=== PATIENT | female | born 1975 | race Caucasian/White ===

== ENCOUNTER 2020-10-16 21:45 | Emergency (ER) | payer OTHER ==
[~2020-10-16] VITALS: Ht 157.5 cm; Wt 124.3 kg
[~2020-10-16 21:45] MED LIST: BENADRYL25 MG PO; HYDROCHLOROTHIA25 M2 PO; IBUPROFEN 800800 M1 PO; LEXAPRO20 MG PO; NAPROSYN500 MG PO; NORVASC5 MG PO; PRILOSEC40 MG PO; PRINIVIL40 MG PO; PROAIR HFA8.5 GM INH; SYMBICORT160 MCG/4. INH; VITAMIN D5000 UNIT PO
[2020-10-16] MEDS ORDERED: NEURONTIN 300M300 M2 PO (21:53)
[2020-10-16] MEDS ORDERED: BUSPIRONE HCL10 MG PO (21:53)
[2020-10-16] MEDS ORDERED: CYMBALTA60 MG PO (21:53)
[2020-10-16] MEDS ORDERED: VISTARIL 25 MG25 M1 PO (21:53)
[2020-10-16] MEDS ORDERED: CYMBALTA30 MG PO (21:54)
[2020-10-16 22:43] LABS: URINE BILIRUBIN NEGATIVE (Negative); URINE BLOOD NEGATIVE (Negative); URINE CLARITY CLEAR; URINE COLOR YELLOW; URINE GLUCOSE-RANDOM* NEGATIVE (Negative); URINE KETONES NEGATIVE (Negative); URINE NITRITE-REFLEX NEGATIVE (Negative); URINE PROTEIN (DIPSTICK) NEGATIVE (Negative); URINE SPECIFIC GRAVITY >= 1.030 (1.005-1.035); URINE UROBILINOGEN 0.2 E.U./dl (0.2-1.0)
[2020-10-16 22:44] LABS: URINE LEUKOCYTES-REFLEX 1+ (Negative)
[2020-10-16 22:51] LABS: BACTERIA-REFLEX 1-9 Few /HPF (None Seen); CASTS None Seen /LPF (None Seen); CRYSTALS None Seen /LPF (None Seen); MUCUS 0-3 Light strn/LPF (None Seen); SQUAMOUS >10 Many /LPF (0-3); URINE RBC 0-2 Rare /HPF (0-2); URINE WBC-REFLEX 6-15 Few /HPF (0-5)
[2020-10-16 22:57] LABS: ABSOLUTE NEUTROPHILS 6.8 thou/uL (1.4-8.2); BASOPHILS 0.8 % (0.0-2.0); EOSINOPHILS 3.1 % (0.0-3.0); HEMATOCRIT 42.3 % (37.0-47.0); HEMOGLOBIN 13.8 gm/dL (12.0-15.0); LYMPHOCYTES 31.5 % (24.0-44.0); MCHC 32.6 g/dL (28.0-37.0); MONOCYTES 8.6 % (1.0-8.0); PLATELET COUNT 392 thou/uL (150-400); RBC 4.92 mil/uL (4.20-5.00); RDW 14.9 % (10.5-14.5); WBC 12.1 thou/uL (4.0-11.0)
[2020-10-16 23:17] LABS: ALBUMIN 3.2 g/dL (3.4-5.0); CALCIUM 8.7 mg/dL (8.5-10.1); DIRECT BILIRUBIN 0.1 mg/dL (<0.1-0.2); TOTAL BILIRUBIN 0.4 mg/dL (0.2-1.0); TOTAL PROTEIN 7.4 g/dL (6.4-8.2)
[2020-10-16 23:21] LABS: POTASSIUM 2.8 mmol/L (3.5-5.1)
[2020-10-17] MEDS ORDERED: BENTYL 20 MG TA20 M1 PO (01:08)
[2020-10-17] MEDS ORDERED: POTASSIUM20 PO (01:08)
[2020-10-17 01:52] VITALS: BP 110/72
== END 2020-10-17 01:43 | disposition home or self-care (01) ==
LOC: ER 21:45
PROVIDERS: Emergency Medicine
DX: E87.6 Hypokalemia (principal); R10.9 Unspecified abdominal pain; R91.1 Solitary pulmonary nodule; I10 Essential (primary) hypertension; J45.909 Unspecified asthma, uncomplicated; K21.9 Gastro-esophageal reflux disease without esophagitis; Z90.49 Acquired absence of other specified parts of digestive tract; Z87.891 Personal history of nicotine dependence; Z79.899 Other long term (current) drug therapy; Z88.0 Allergy status to penicillin; Z91.018 Allergy to other foods; Z91.048 Other nonmedicinal substance allergy status

== ENCOUNTER 2020-11-05 01:01 | Emergency (ER) | payer OTHER ==
--- NOTE | ~2020-11-05 | EMS ---
[address] [address] EMS Patient Care Report Name: HUBER WILSON Room #: REG NAHOMI Mitchell#: [id number] Admission: 11/05/20 Attend Phys: Discharge: Date of : 75 Report #: [id number] THIS REPORT FOR: //name// Report Transmitted: 11/05/2020 02:18 EMS Care Summary [place], [place]/[facility] Incident [id number] @ 11/05/2020 00:25 Incident Location [address] [place] [address] Patient HUBER WILSON Female, 45 Years 1975 Patient Address [address] [place] [id number] Patient History Asthma,Hypertension (HTN),Kidney Stone, Patient Allergies Penicillin allergy, Patient Medications Lisinopril, Hydrochlorothiazide (Hctz), Metaproterenol, Buspar, Symbicort, Chief Complaint Rash Disposition Transported No Lights/[place] Dispatch Reason Allergic Reaction/Stings Transported To [facility] Narrative 45 y/o female with a torso rash. On arrival found pt in the lobby of the facility with staff on scene. Pt stated [address] [address] EMS Patient Care Report Name: HUBER WILSON Room #: JIM Mitchell#: [id number] Admission: 11/05/20 Attend Phys: Discharge: Date of : 75 Report #: [id number] that she started having a rash to her chest and neck at approximately 2130 this evening. Pt denied any difficulty breathing or other symptoms. Pt stated she did not know of what was causing the rash, pt denied any new medications. EMS looked for an IV on pt but due to her size there was no obvious veins for an IV. EMS administered benadryl IM in left deltoid. Pt wanted to go to [facility] but was advised that it was on high volume. EMS explained that a hospital at high volume could have an increased wait time for testing and treatment. EMS asked if there was another hospital that she would prefer. Pt stated she has been to [facility] before and she could go there. EMS monitored pt/VS/ECG en route to [facility]. Transferred care of pt to [facility] ED RN without incident. Initial Vitals @00:52P: 56,BP: 103/54,SpO2: 99, @00:39P: 58,R: 18,BP: 124/82,Pain: 0/10,GCS: 15,Glucose: 92,SpO2: 99,Revised Trauma: 12, Assessments @00:33MENTAL:No Abnormalities,SKIN:No Abnormalities,HEENT:Head/Face: No Abnormalities,Eyes: No Abnormalities,Neck/Airway: No Abnormalities,LUNG SOUNDS:General: No Abnormalities,Left Upper: No Abnormalities,Right Upper: No Abnormalities,Left Lower: No Abnormalities,Right Lower: No Abnormalities,ABDOMEN:General: No Abnormalities,Left Upper: No Abnormalities,Right Upper: No Abnormalities,Left Lower: No Abnormalities,Right Lower: No Abnormalities,PELVIS//GI:No Abnormalities,EXTREMITIES:Capillary Refill: Left Upper: < 2 Sec,Left Arm: No Abnormalities,Right Arm: No Abnormalities,Left Leg: No Abnormalities,Right Leg: No Abnormalities,PULSE:Radial: 2+ Normal,NEURO:No Abnormalities, Impression Allergic Reaction Procedures @00:33ALS AssessmentResponse: UnchangedSucceeded@00:40Benadryl - 50 Milligrams (mg) - Intramuscular (IM)Response: Unchanged Timeline 00:24,Call Received 00:24,Dispatch Notified 00:25,Dispatched 00:25,En Route 00:31,On Scene 00:33,At Patient 00:33,ALS Assessment,Response: UnchangedSucceeded, 00:39,BP: 124/82 M,PULSE: 58,RR: 18 R,SPO2: 99 Ox,ETCO2: ,B,PAIN: 0,GCS: [address] [address] EMS Patient Care Report Name: HUBER WILSON Room #: REG NAHOMI Mitchell#: [id number] Admission: 11/05/20 Attend Phys: Discharge: Date of : 75 Report #: [id number] 15, 00:40,Benadryl - 50 Milligrams (mg) - Intramuscular (IM),Response: Unchanged 00:46,Depart Scene 00:52,BP: 103/54 M,PULSE: 56,RR: R,SPO2: 99 Ox,ETCO2: ,BG: ,PAIN: ,GCS: , 00:59,At Destination 01:15,Call Closed Disclaimer v1.1 Copyright 2020 [employer] This EMS Care Summary contains data elements from the applicable legal record (which may be displayed differently). It is designed to provide pertinent information for the following purposes: continuity of care, clinical quality, and state data reporting. The complete legal record is available to ED staff and administrators of the receiving hospital in [employer]'s Patient Tracker. All data is provided "as is."
[~2020-11-05 01:01] MED LIST changes: +BENTYL 20 MG TA20 M1 PO; +BUSPIRONE HCL10 MG PO; +CYMBALTA30 MG PO; +CYMBALTA60 MG PO; +NEURONTIN 300M300 M2 PO; +POTASSIUM20 PO; +VISTARIL 25 MG25 M1 PO
[2020-11-05] MEDS ORDERED: PREDNISONE50 MG PO (01:17)
[2020-11-05 01:50] VITALS: BP 136/81
== END 2020-11-05 01:50 | disposition home or self-care (01) ==
LOC: ER 01:01
DX: L50.9 Urticaria, unspecified (principal); R19.7 Diarrhea, unspecified; I10 Essential (primary) hypertension; F32.9 Major depressive disorder, single episode, unspecified; J45.909 Unspecified asthma, uncomplicated; K21.9 Gastro-esophageal reflux disease without esophagitis; Z91.048 Other nonmedicinal substance allergy status; Z91.018 Allergy to other foods; Z88.0 Allergy status to penicillin; Z87.891 Personal history of nicotine dependence; Z79.899 Other long term (current) drug therapy

== ENCOUNTER 2020-11-05 19:52 | Emergency (ER) | payer OTHER ==
[~2020-11-05] VITALS: Ht 157.5 cm; Wt 124.3 kg
[~2020-11-05 19:52] MED LIST changes: +PREDNISONE50 MG PO
[2020-11-05 21:09] VITALS: BP 129/78
== END 2020-11-05 21:10 | disposition home or self-care (01) ==
LOC: ER 19:52
DX: S00.31XA Abrasion of nose, initial encounter (principal); I10 Essential (primary) hypertension; J45.909 Unspecified asthma, uncomplicated; F32.9 Major depressive disorder, single episode, unspecified; K21.9 Gastro-esophageal reflux disease without esophagitis; Z90.49 Acquired absence of other specified parts of digestive tract; Z79.899 Other long term (current) drug therapy; Z91.048 Other nonmedicinal substance allergy status; Z88.0 Allergy status to penicillin; Z91.018 Allergy to other foods; Z87.891 Personal history of nicotine dependence; W31.89XA Contact with other specified machinery, initial encounter; Y93.A1 Activity, exercise machines primarily for cardiorespiratory conditioning; Y92.89 Other specified places as the place of occurrence of the external cause; Y99.8 Other external cause status